=== PATIENT | male | born 1940 | race Caucasian/White ===

== ENCOUNTER 2017-12-11 10:25 | Emergency (ER) | payer OTHER, MEDICARE ==
--- NOTE | 2017-12-11 10:56 | EDM.PDOC ---
ED HPI GENERAL MEDICAL PROBLEM - General Chief Complaint: Gastrointestinal Problem Stated Complaint: BLOOD IN STOOL Time Seen by Provider: 12/11/17 10:46 Source of Information: Reports: Patient History Limitations: Reports: No Limitations - History of Present Illness INITIAL COMMENTS - FREE TEXT/NARRATIVE: 77-year-old male presents to the ED referred from the CT clinic. Patient reports that he started passing intermittent blood per rectum for the last month. Yesterday he had at least 5 stools that contained blood and then at 1700 hrs. he had a large volume blood stool loss--two handfulls. He states he had 3 bloody stools overnight( small amount) as well. He presents to the ED feeling quite dizzy, lightheaded, short of breath. Vital signs show BP 129/78. Heart rate wonders between 112 and up to 135/m. patient went to the CT clinic primarily this morning because of severe cramping abdominal pain. Of note the patient states he had triple bypass surgery and aortic valve replacement 15 years ago and was treated initially with Coumadin up until about 4 years ago when he was started on xarelto daily. Last dose was yesterday morning at 6 AM. He has taken no medications today. Recently started on methimazole 10 mg tablets 2 tablets twice daily which seems to be an excessive dose. This was started for hyperthyroidism. Onset: Sudden Onset Date: 12/10/17 (Started having bright red bloody stools per rectum yesterday associate with abdominal cramping pain.) Duration: Hour(s):, Waxing/Waning Location: Reports: Abdomen (Diffuse intermittent lower abdominal cramping pain associated with bright red blood per rectum.) Quality: Reports: Sharp, Stabbing, Other Severity: Moderate (Commitment abdominal cramping pain) Improves with: Reports: None Worsens with: Reports: None Context: Reports: Other (Spontaneous occurrence.). Denies: Activity, Exercise, Lifting, Sick Contact, Trauma Associated Symptoms: Reports: Loss of Appetite, Malaise, Nausea/Vomiting, Shortness of Breath, Weakness (Nausea without vomiting). 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 (see below) (None.) abdominal Pain Score (Numeric/FACES): 8 - Related Data Allergies Allergy/AdvReac Type Severity Reaction Status Date / Time No Known Allergies Allergy Verified 10/13/14 13:14 Home Meds: Home Meds Aspirin [Araceli Chewable Aspirin] 81 mg PO DAILY 08/27/13 [History] Metoprolol Tartrate 25 mg PO BID 08/27/13 [History] Rosuvastatin Calcium [Crestor] 40 mg PO BEDTIME 08/27/13 [History] Cholecalciferol (Vitamin D3) [Vitamin D3] 1,000 unit PO DAILY 12/11/17 [History] Fluticasone Propionate [Flovent] 2 spray NASBOTH DAILY 12/11/17 [History] Gabapentin [Neurontin] 300 mg PO BID 12/11/17 [History] Methimazole [Tapazole] 20 mg PO BID 12/11/17 [History] Multivitamin with Minerals [Multivitamins with Minerals] 1 cap PO DAILY [History] Pantoprazole [ProTONIX] 40 mg PO DAILY 12/11/17 [History] Rivaroxaban [Xarelto] 20 mg PO DAILY 12/11/17 [History] diphenhydrAMINE [Benadryl] 25 mg PO DAILY PRN 12/11/17 [History] predniSONE 40 mg PO DAILY 12/11/17 [History] traZODone HCl [Trazodone HCl] 50 mg PO BEDTIME 12/11/17 [History] Past Medical History Cardiovascular History: Reports: Afib, CAD (Previous triple bypass. This was done the same time is aortic valve replacement.), Heart Valve Replacement ( Aortic heart valve replacement--bioprosthetic - 5 years ago. On warfarin for about 2 years and on Xarelto 20mg od for about 3 years now.), SOB on Exertion Respiratory History: Reports: COPD (Mild) Gastrointestinal History: Reports: Other (See Below) (Known achalasia esophagus. ) Genitourinary History: Reports: Prostate Disorder (Prostate cancer diagnosed 30 years ago and he has had a total prostatectomy. He has some dribbling for the last 4-5 years. He is on oxybutynin for this but doesn't believe it is helping much.) Musculoskeletal History: Reports: Osteoarthritis - Past Surgical History Other Cardiovascular Surgeries/Procedures: 2013 VALVE SURGERY Social & Family History - Living Situation & Occupation Living situation: Reports: Occupation: Retired ED ROS GENERAL - Review of Systems Review Of Systems: See Below Constitutional: Reports: Malaise, Weakness, Fatigue, Decreased Appetite, Weight Loss. Denies: Fever, Chills HEENT: Reports: Glasses Respiratory: Reports: Shortness of Breath. Denies: Wheezing, Pleuritic Chest Pain, Cough, Sputum, Hemoptysis Cardiovascular: Reports: Dyspnea on Exertion (Since yesterday), Lightheadedness. Denies: Chest Pain, Blood Pressure Problem, Claudication, Orthopnea Endocrine: Reports: Fatigue GI/Abdominal: Reports: Abdominal Pain (Much worse today see history of present illness.), Bloody Stool : Reports: Incontinence (Urinary incontinence dribbling primarily for about 5 years. But no total radical prostatectomy 30 years ago for prostate cancer.), Urgency Musculoskeletal: Reports: Joint Pain (Knees hips and low back shoulders and neck.) Skin: Reports: No Symptoms Neurological: Reports: Dizziness, Difficulty Walking, Weakness (Since yesterday. Otherwise weakness) Psychiatric: Reports: No Symptoms (Difficulty walking today due to weakness and dizziness.) Hematologic/Lymphatic: Reports: Easy Bleeding, Easy Bruising Immunologic: Reports: No Symptoms ED EXAM, GI/ABD - Physical Exam Exam: See Below Exam Limited By: No Limitations General Appearance: Alert, WD/WN, Anxious Eyes: Bilateral: Normal Appearance, Pale Conjunctiva (Still has pretty good color in both lower blood flow margins. His hand however do show some whitening of the palmar creases.) Ears: Normal TMs Throat/Mouth: Normal Inspection, Normal Lips, Normal Oropharynx Neck: Limited Range of Motion, Thyromegaly (Diffuse thyroid enlargement 4 times normal size. No definitive masses identified in the thyroid). No: Normal Inspection, Lymphadenopathy (L), Lymphadenopathy (R) Respiratory/Chest: Respiratory Distress (Tachypnea at rest 22 24/m. O2 sats 93% on room air. placed on 2 L/m by nasal specks.), Decreased Breath Sounds ( Breath sounds are mildly decreased in both bases.). No: Rales, Rhonchi, Wheezing Cardiovascular: Regular Rate, Rhythm, No Edema, No Gallop, No Rub. No: Normal Peripheral Pulses GI/Abdominal Exam: Guarding, Tender (Hyperactive bowel sounds appreciated. Is tenderness throughout the left hemiabdomen particularly left lower quadrant with guarding. Some tenderness also on palpation of the right hemiabdomen particularly mid abdomen.), Abnormal Bowel Sounds. No: Rigid (Left side), Rebound, Hepatomegaly (Male) Exam: No Hernia Rectal (Males) Exam: Heme + Stool Back Exam: Normal Inspection, Full Range of Motion. No: CVA Tenderness (L), CVA Tenderness (R) Extremities: Pedal Edema (2+ pitting edema bilaterally.), Other (Osteophytic changes both knees and both hips.) Neurological: Alert, Oriented, CN II-XII Intact, Normal Cognition. 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 Cannot rule out an old anteroseptal myocardial infarction ) Course - Vital Signs Last Recorded V/S: Last Vital Signs Temp 36.8 C 12/11/17 12:55 Pulse 124 H 12/11/17 12:55 Resp 24 H 12/11/17 12:55 BP 112/89 12/11/17 12:55 Pulse Ox 98 12/11/17 12:55 - Orders/Labs/Meds Orders: Active Orders 24 hr Category Date Time Status EKG Documentation Completion [RC] STAT Care 12/11/17 11:33 Active Oxygen Therapy [RC] ASDIRECTED Care 12/11/17 11:24 Active Abdomen 1V Flat [CR] Stat Exams 12/11/17 11:18 Taken Chest 1V Frontal [CR] Stat Exams 12/11/17 11:31 Taken FREE T3 [REF] Stat Lab 12/11/17 10:55 Received FRESH FROZEN PLASMA [BBK] Stat Lab 12/11/17 10:55 Results PACKED CELLS [RED BLOOD CELLS LP] [BBK] Stat Lab 12/11/17 10:55 Results PATIENT RETYPE [BBK] Stat Lab 12/11/17 10:55 Results TYPE AND SCREEN [BBK] Stat Lab 12/11/17 10:55 Results Amiodarone In Dextrose,Iso-Osm [Nexterone in Dextrose Med 12/11/17 12:45 Active 360 MG/200 ML] 360 mg in 200 ml IV ASDIRECTED Sodium Chloride 0.9% [Normal Saline] 1,000 ml Med 12/11/17 11:00 Active IV ASDIRECTED Medication Orders Sodium Chloride (Normal Saline) 1,000 mls @ 999 mls/hr IV ASDIRECTED LIBORIO Last Admin: 12/11/17 11:05 Dose: 999 mls/hr Amiodarone HCl/Dextrose (Nexterone In Dextrose 360 Mg/200 Ml) 360 mg in 200 mls @ 33.333 mls/hr IV ASDIRECTED LIBORIO; Protocol Last Admin: 12/11/17 13:15 Dose: 33.333 mls/hr Labs: Laboratory Tests 12/11/17 12/11/17 12/11/17 Range/Units 10:55 10:55 10:55 WBC 8.64 (4.23-9.07) K/mm3 RBC 6.05 (4.63-6.08) M/mm3 Hgb 17.2 (13.7-17.5) gm/L Hct 48.6 (40.1-51.0) % MCV 80.3 (79.0-92.2) fl MCH 28.4 (25.7-32.2) pg MCHC 35.4 (32.2-35.5) g/dl RDW Std Deviation 49.3 H (35.1-43.9) fL Plt Count 161 L (163-337) K/mm3 MPV 9.3 L (9.4-12.3) fl Neutrophils % (Manual) 84 H (40-60) % Band Neutrophils % 4 (0-10) % Lymphocytes % (Manual) 10 L (20-40) % Atypical Lymphs % 0 % Monocytes % (Manual) 2 (2-10) % Eosinophils % (Manual) 0 L (0.8-7.0) % Basophils % (Manual) 0 L (0.2-1.2) Platelet Estimate Adequate Anisocytosis 1+ slight RBC Morph Comment Abn PT 13.5 H (9.5-12.1) SECONDS INR 1.24 APTT 36 H (24-31) SECONDS Sodium 126 L (136-145) mEq/L Potassium 4.4 (3.5-5.1) mEq/L Chloride 91 L (98-107) mEq/L Carbon Dioxide 27 (21-32) mEq/L Anion Gap 12.4 (5-15) BUN 18 (7-18) mg/dL Creatinine 1.5 H (0.7-1.3) mg/dL Est Cr Clr Drug Dosing 39.27 mL/min Estimated GFR (MDRD) 45 (>60) mL/min BUN/Creatinine Ratio 12.0 L (14-18) Glucose 86 (83-115) mg/dL Calcium 9.0 (8.5-10.1) mg/dL Magnesium 1.9 (1.8-2.4) mg/dl Total Bilirubin 2.4 H (0.2-1.0) mg/dL AST 32 (15-37) U/L ALT 41 (16-63) U/L Alkaline Phosphatase 60 (46-116) U/L Troponin I < 0.017 (0.00-0.056) ng/mL C-Reactive Protein 36.5 H* (<1.0) mg/dL NT-Pro-B Natriuret Pep (0-450) pg/mL Total Protein 6.5 (6.4-8.2) g/dl Albumin 2.6 L (3.4-5.0) g/dl Globulin 3.9 gm/dL Albumin/Globulin Ratio 0.7 L (1-2) Free T4 (0.76-1.46) ng/dL TSH 3rd Generation (0.358-3.74) uIU/mL Blood Type Gel Antibody Screen Crossmatch 12/11/17 12/11/17 12/11/17 Range/Units 10:55 10:55 10:55 WBC (4.23-9.07) K/mm3 RBC (4.63-6.08) M/mm3 Hgb (13.7-17.5) gm/L Hct (40.1-51.0) % MCV (79.0-92.2) fl MCH (25.7-32.2) pg MCHC (32.2-35.5) g/dl RDW Std Deviation (35.1-43.9) fL Plt Count (163-337) K/mm3 MPV (9.4-12.3) fl Neutrophils % (Manual) (40-60) % Band Neutrophils % (0-10) % Lymphocytes % (Manual) (20-40) % Atypical Lymphs % % Monocytes % (Manual) (2-10) % Eosinophils % (Manual) (0.8-7.0) % Basophils % (Manual) (0.2-1.2) Platelet Estimate Anisocytosis RBC Morph Comment PT (9.5-12.1) SECONDS INR APTT (24-31) SECONDS Sodium (136-145) mEq/L Potassium (3.5-5.1) mEq/L Chloride (98-107) mEq/L Carbon Dioxide (21-32) mEq/L Anion Gap (5-15) BUN (7-18) mg/dL Creatinine (0.7-1.3) mg/dL Est Cr Clr Drug Dosing mL/min Estimated GFR (MDRD) (>60) mL/min BUN/Creatinine Ratio (14-18) Glucose (83-115) mg/dL Calcium (8.5-10.1) mg/dL Magnesium (1.8-2.4) mg/dl Total Bilirubin (0.2-1.0) mg/dL AST (15-37) U/L ALT (16-63) U/L Alkaline Phosphatase (46-116) U/L Troponin I (0.00-0.056) ng/mL C-Reactive Protein (<1.0) mg/dL NT-Pro-B Natriuret Pep 6082 H (0-450) pg/mL Total Protein (6.4-8.2) g/dl Albumin (3.4-5.0) g/dl Globulin gm/dL Albumin/Globulin Ratio (1-2) Free T4 0.67 L (0.76-1.46) ng/dL TSH 3rd Generation 32.603 H (0.358-3.74) uIU/mL Blood Type AB POSITIVE Gel Antibody Screen Negative Crossmatch See Detail Meds: Medications Generic Name Dose Route Start Last Admin Trade Name Freq PRN Reason Stop Dose Admin Sodium Chloride 1,000 mls @ 999 mls/hr 12/11/17 11:00 12/11/17 11:05 Normal Saline IV 999 mls/hr ASDIRECTED LIBORIO Administration Amiodarone HCl/Dextrose 360 mg in 200 mls @ 33.333 mls/hr 12/11/17 12:45 13:15 Nexterone In Dextrose 360 Mg/200 Ml IV 33.333 mls/hr ASDIRECTED LIBORIO Administration Protocol Discontinued Medications Generic Name Dose Route Start Last Admin Trade Name Janey PRAndrew Reason Stop Dose Admin Furosemide 40 mg 12/11/17 12:34 12/11/17 12:59 Lasix IVPUSH 12/11/17 12:35 40 mg NOW ONE Administration Hydromorphone HCl 0.5 mg 12/11/17 11:19 12/11/17 12:09 Dilaudid IVPUSH 12/11/17 11:20 0.5 mg ONETIME ONE Administration Meropenem 1 gm/ Sodium 100 mls @ 200 mls/hr 12/11/17 12:35 12/11/17 13:13 Chloride IV 12/11/17 13:04 200 mls/hr ONETIME ONE Administration Meropenem Confirm 12/11/17 12:45 12/11/17 13:04 Merrem Administered 12/11/17 12:46 Not Given Dose 1 gm .ROUTE .STK-MED ONE Metoclopramide HCl 7.5 mg 12/11/17 11:19 12/11/17 12:09 Reglan IVPUSH 12/11/17 11:20 7.5 mg ONETIME ONE Administration - Radiology Interpretation Free Text/Narrative:: 77-year-old male presents to the ED with a history of intermittent bleeding per rectum for the better part of a month. Yesterday however he started noticing increased blood per rectum and had 3 stools yesterday that contained blood. At 5 :00 he had a pure bloody stool associated with development of severe crampy abdominal pain. Subsequently he has had 3 further bloody stools overnight. He is feeling lightheaded. He is feeling dizzy. He is finding it difficult to walk. He does recognize that he is more short of breath than normal. [facility] and was sent to the ED with a recognize that he was suffering a significant GI bleed. Patient has no problems taking a blood transfusion if needed. Patient is significantly orthostatic. Heart rate was in the 130s with standing and BP was 86/50 standing. Plan IV normal saline at open. Crossmatch for 2 units of packed cells. Of note the patient is on Xarelto 20 mg once daily for an artificial heart valve. He therefore is going to require semiurgent colonoscopy to identify source of bleeding she is going to need to continue some form of anticoagulant to prevent stroke. - Re-Assessments/Exams Free Text/Narrative Re-Assessment/Exam: 12/11/17 11:41 BP at present is 119/71. Heart rate is 116-130/m. Monitor shows atrial fibrillation. Reviewing his med list suggest that he is on prednisone 40 mg daily as well. The reason for this is unclear. He is also on aspirin 81 mg daily. One view of the abdomen shows increased stool throughout the right hemicolon. There is no free air. Chest x-ray shows hyperinflated lung martinez. Cardiac silhouette is upper limits of normal in size. There is mild diffuse vascular congestion pattern. 12/11/17 12:07 Part of the labs are back. Total white count is 8.64 with 84% neutrophils and 4% band cells. Hemoglobin is 17.2 with hematocrit of 48.6 suggesting some degree of hemoconcentration. Platelet count is 161,000. PT is 13.5 with an INR 1.24. PTT is 36. Serum sodium is low at 126. Potassium is 4.4. Chloride is 91 with a bicarbonate 27. Anion gap is 12.4 with a BUN of 18. Creatinine is 1.5. Estimated GFR is 45. Glucose is 86. Calcium is 9.0 magnesium is 1.9. Total bilirubin is elevated at 2.4. AST is normal at 32 with an ALT of 41. Alk phosphatase is normal at 60. Troponin I is less than 0.017. BNP is elevated at 6082. Total protein 6.5 with albumin fraction low at 2.6. TSH is 32.603. He therefore is 0.67 which is low. His vital signs seem to have stabilized. Atrial fib rate is anywhere from 95-1 35/m. BP is 102/64. Plan will be to turn down his IV rate since it was started at open because of low blood pressure. Labs suggest that he still has adequate adequate amount of hemoglobin. He will require Lasix 40 mg IV as he is already on significant heart failure. Patient is going to be to be transferred to [facility] in [facility] for definitive management. Complex medical problems. He will need to stay on some form of anticoagulant because of artificial heart valve and atrial fibrillation. Will need a colonoscopy to identify source of GI bleeding sooner rather than later. At present he is hypothyroid and clinically is on too much methimazole. It's unclear how much investigation has been done on his thyroid in terms of imaging studies. Atrial fib rate will be difficult to manage with medications this point time due to hypotension. Significant congestive heart failure evident at this time. He is hypoxic on room air and requires O2 supplementation. 12/11/17 12:30: I have spoken with the managed services sales consultant at [facility] in [place]. Mitchell and he is accepted care of this patient. He suggest that we start the patient on amiodarone drip at 60 mg per hour to try and provide rate control of his atrial fibrillation. This may cause hypertension which may in turn require a vasopressor. Secondly he suggest a dose of meropenem in case he has significant diverticulitis causing his GI bleeding. He will be given 1 g IV. I've previously ordered Lasix 40 mg IV after identifying his BNP to be greater than 6000. BP is currently 123/71. Heart rate remains anywhere from 105- 1 35/m atrial fibrillation. O2 sats are 97-99% on 2 L by nasal cannula. Patient will have 1 unit of blood started at this time. 12/11/17 13:30 C-reactive protein has returned and is markedly elevated at 36.5 suggesting a possible infectious cause of his GI bleeding such as diverticulitis. Patient did receive a dose of meropenem during transport to [place]. Departure - Departure Time of Disposition: 12:54 Disposition: DC/Tfer to Acute Hospital 02 Condition: Serious Clinical Impression: Acute lower GI hemorrhage, Anticoagulation management encounter, Chronic atrial fibrillation with RVR, History of heart valve replacement with bioprosthetic valve, Abdominal pain in male, Iatrogenic hypothyroidism, Graves disease, Hyponatremia CHF (congestive heart failure) Qualifiers: Heart failure type: unspecified Heart failure chronicity: chronic Qualified Code(s): I50.9 - Heart failure, unspecified - Discharge Information *PRESCRIPTION DRUG MONITORING PROGRAM REVIEWED*: Not Applicable *COPY OF PRESCRIPTION DRUG MONITORING REPORT IN PATIENT KOLE: Not Applicable Referrals: Annamaria Travis DO [Primary Care Provider] - Forms: ED Department Discharge - My Orders Last 24 Hours: My Active Orders 12/11/17 10:55 FREE T3 [REF] Stat FRESH FROZEN PLASMA [BBK] Stat PACKED CELLS [RED BLOOD CELLS LP] [BBK] Stat PATIENT RETYPE [BBK] Stat TYPE AND SCREEN [BBK] Stat 12/11/17 11:00 Sodium Chloride 0.9% [Normal Saline] 1,000 ml IV ASDIRECTED 12/11/17 11:18 Abdomen 1V Flat [CR] Stat 12/11/17 11:24 Oxygen Therapy [RC] ASDIRECTED 12/11/17 11:31 Chest 1V Frontal [CR] Stat 12/11/17 11:33 EKG Documentation Completion [RC] STAT 12/11/17 12:45 Amiodarone In Dextrose,Iso-Osm [Nexterone in Dextrose 360 MG/200 ML] 360 mg in 200 ml IV ASDIRECTED - Assessment/Plan Last 24 Hours: My Active Orders 12/11/17 10:55 FREE T3 [REF] Stat FRESH FROZEN PLASMA [BBK] Stat PACKED CELLS [RED BLOOD CELLS LP] [BBK] Stat PATIENT RETYPE [BBK] Stat TYPE AND SCREEN [BBK] Stat 12/11/17 11:00 Sodium Chloride 0.9% [Normal Saline] 1,000 ml IV ASDIRECTED 12/11/17 11:18 Abdomen 1V Flat [CR] Stat 12/11/17 11:24 Oxygen Therapy [RC] ASDIRECTED 12/11/17 11:31 Chest 1V Frontal [CR] Stat 12/11/17 11:33 EKG Documentation Completion [RC] STAT 12/11/17 12:45 Amiodarone In Dextrose,Iso-Osm [Nexterone in Dextrose 360 MG/200 ML] 360 mg in 200 ml IV ASDIRECTED
[2017-12-11] MEDS ORDERED: Sodium Chloride 0.9% 1,000 ML IV SCH (11:00)
[2017-12-11] MEDS ORDERED: HYDROmorphone 0.5 MG/0.5 ML SYRINGE IVPUSH ONE (11:19)
[2017-12-11] MEDS ORDERED: Metoclopramide 10 MG/2 ML SDV IVPUSH ONE (11:19)
[2017-12-11] MEDS ORDERED: Furosemide 40 MG/4 ML VIAL IVPUSH ONE (12:34)
[2017-12-11] MEDS ORDERED: Meropenem 1 GM in Sodium Chloride 0.9% 100 ML IV ONE (12:35)
[2017-12-11] MEDS ORDERED: Meropenem 1 GM SDV ONE (12:45)
[2017-12-11 12:56] VITALS: BP 112/89
--- NOTE | 2017-12-17 07:30 | CR ---
Abdomen: Supine view of the abdomen was obtained. Comparison: Prior abdominal x-ray of 08/27/13. Multiple surgical clips are seen within the pelvis. Degenerative change is noted within the spine. Several surgical clips are seen within the right upper abdomen. Mild vascular calcification is noted. Bowel gas pattern appears unremarkable. Previous sternotomy and prosthetic heart valve are noted. Impression: 1. Incidental findings. Nothing acute is appreciated. Diagnostic code #2
--- NOTE | 2017-12-17 08:36 | CR ---
Chest: Portable view of the chest was obtained. Comparison: Prior chest x-ray of 10/13/14. Heart size is accentuated from portable technique. Upper mediastinum is normal. Lungs are clear without acute parenchymal change. Previous sternotomy is noted. Bony structures are grossly intact. Impression: 1. Nothing acute is seen on portable chest x-ray. Diagnostic code #2
== END 2017-12-11 13:39 ==
LOC: JD.ED 10:25
DX: K92.2 Gastrointestinal hemorrhage, unspecified (principal); I50.9 Heart failure, unspecified; I48.2 Chronic atrial fibrillation; E03.2 Hypothyroidism due to medicaments and other exogenous substances; E05.00 Thyrotoxicosis with diffuse goiter without thyrotoxic crisis or storm; E87.1 Hypo-osmolality and hyponatremia; J44.9 Chronic obstructive pulmonary disease, unspecified; Z79.01 Long term (current) use of anticoagulants; Z95.2 Presence of prosthetic heart valve; Z79.899 Other long term (current) drug therapy; Z79.82 Long term (current) use of aspirin
CPT/HCPCS: 36415; 36430; 71045; 74018; 80053; 83735; 83880; 84439; 84443; 84481; 84484; 85007; 85027; 85610; 85730; 86140; 86850; 86900; 86901; 86922; 93005; 96361; 96365; 96374; 96375; 99285; J0282; J1170; J1940; J2185; J2765; J7030; J7040; P9016; 93010